=== PATIENT | female | born 1995 | race Caucasian/White ===

== ENCOUNTER 2017-05-26 10:35 | Emergency (ER) | payer MEDICAID ==
[~2017-05-26] VITALS: Ht 160 cm; Wt 45.0 kg
[2017-05-26 12:53] VITALS: BP 109/72
== END 2017-05-26 12:54 | disposition home or self-care (01) ==
LOC: ER 10:36
DX: Z00.8 Encounter for other general examination (principal); F11.10 Opioid abuse, uncomplicated; F17.200 Nicotine dependence, unspecified, uncomplicated
CPT/HCPCS: 99281

== ENCOUNTER 2017-06-19 17:41 | Emergency (ER) | payer MEDICAID | END 2017-06-19 19:23 | disposition left against medical advice (07) | LOC: ER 17:41 | DX: Z53.21 Procedure and treatment not carried out due to patient leaving prior to being seen by health care provider (principal) ==

== ENCOUNTER 2018-01-04 17:42 | Emergency (ER) | payer MEDICAID ==
[~2018-01-04] VITALS: Ht 160 cm; Wt 50.0 kg
[2018-01-04 18:48] VITALS: BP 116/75
== END 2018-01-04 19:48 | disposition home or self-care (01) ==
LOC: ER 17:43
DX: Z02.89 Encounter for other administrative examinations (principal); F11.90 Opioid use, unspecified, uncomplicated
CPT/HCPCS: 99281

== ENCOUNTER 2019-03-08 20:17 | Emergency (ER) | payer MEDICAID ==
[~2019-03-08] VITALS: Ht 160 cm; Wt 50.0 kg
[2019-03-08 20:33] VITALS: BP 106/61
[2019-03-08] MEDS ORDERED: PENI500T2 PO (20:56)
[2019-03-08] MEDS ORDERED: IBUP-1984 PO (20:56)
== END 2019-03-08 21:13 | disposition home or self-care (01) ==
LOC: ER 20:17
DX: K04.7 Periapical abscess without sinus (principal); K02.9 Dental caries, unspecified; F17.200 Nicotine dependence, unspecified, uncomplicated; Z79.899 Other long term (current) drug therapy
CPT/HCPCS: 99283

== ENCOUNTER 2019-07-04 12:12 | Emergency (ER) | payer MEDICAID ==
[~2019-07-04] VITALS: Ht 160 cm; Wt 52.3 kg
[2019-07-04 12:48] VITALS: BP 95/62
[2019-07-04] MEDS ORDERED: ALBU8.5H8 IH (13:08)
[2019-07-04] MEDS ORDERED: DOXY100T56 PO (13:08)
== END 2019-07-04 13:34 | disposition home or self-care (01) ==
LOC: ER 12:12
DX: J20.9 Acute bronchitis, unspecified (principal)
CPT/HCPCS: 99283

== ENCOUNTER 2020-06-29 18:07 | Emergency (ER) | payer MEDICAID ==
[~2020-06-29] VITALS: Ht 160 cm; Wt 52.3 kg
[~2020-06-29 18:07] MED LIST: ALBU8.5H8 IH
[2020-06-29 18:22] VITALS: BP 100/60
[2020-06-29] MEDS ORDERED: ERYT1OIN6 LEFTEYE (19:44)
[2020-06-29] MEDS ORDERED: erythromycin ophthalmic ointment 1gm tube LEFTEYE ONE (19:45)
== END 2020-06-29 20:19 | disposition home or self-care (01) ==
LOC: ER 18:08
DX: H10.89 Other conjunctivitis (principal); Z79.2 Long term (current) use of antibiotics; Z79.899 Other long term (current) drug therapy
CPT/HCPCS: 99283

== ENCOUNTER 2020-11-12 20:39 | Emergency (ER) | payer MEDICAID ==
[~2020-11-12] VITALS: Ht 160 cm; Wt 55.5 kg
[2020-11-12 20:58] VITALS: BP 120/60
[2020-11-12] MEDS ORDERED: penicillin V potassium 500mg tablet PO ONE (22:05)
[2020-11-12] MEDS ORDERED: PENI500T2 PO (22:05)
== END 2020-11-12 22:00 | disposition home or self-care (01) ==
LOC: ER 20:40
DX: O99.612 Diseases of the digestive system complicating pregnancy, second trimester (principal); K04.7 Periapical abscess without sinus; R22.0 Localized swelling, mass and lump, head; Z3A.20 20 weeks gestation of pregnancy; Z79.2 Long term (current) use of antibiotics
CPT/HCPCS: 99283

== ENCOUNTER 2020-11-14 11:49 | Emergency (ER) | payer MEDICAID ==
[~2020-11-14] VITALS: Ht 162.6 cm; Wt 55.5 kg
[~2020-11-14 11:49] MED LIST changes: +PENI500T2 PO
[2020-11-14 12:10] VITALS: BP 110/57
== END 2020-11-14 22:38 | disposition left against medical advice (07) ==
LOC: ER 11:49
DX: K13.79 Other lesions of oral mucosa (principal); Z53.21 Procedure and treatment not carried out due to patient leaving prior to being seen by health care provider

== ENCOUNTER 2020-12-02 18:54 | Emergency (ER) | payer MEDICAID ==
[~2020-12-02] VITALS: Ht 162.6 cm; Wt 55.9 kg
[2020-12-02 20:02] VITALS: BP 104/60
[2020-12-02 20:58] LABS: BASOPHILS % (AUTO) 0.1 % (0-1); EOSINOPHILS % (AUTO) 0.1 % (0-6); HEMATOCRIT 37.7 % (35.0-45.0); HEMOGLOBIN 12.6 g/dl (12.0-16.0); LYMPHOCYTES % (AUTO) 5.3 % (21-51); MEAN CORPUSCULAR HEMOGLOBIN 29.4 PG (27.0-31.0); MEAN CORPUSCULAR HGB CONC 33.4 g/dL (33.0-36.5); MEAN CORPUSCULAR VOLUME 88.1 FL (78-98); MEAN PLATELET VOLUME 6.9 FL (7.4-10.4); MONOCYTES # (AUTO) 1.1 X10'3 (0-0.9); MONOCYTES % (AUTO) 5.5 % (2-12); NEUTROPHILS # (AUTO) 17.2 X10'3 (1.8-7.7); PLATELET COUNT 337 X10'3 (140-440); RED BLOOD COUNT 4.28 X10'6 (4.20-5.60); RED CELL DISTRIBUTION WIDTH 14.1 % (11.5-14.5); WHITE BLOOD COUNT 19.3 X10'3 (4.5-11.0)
[2020-12-02 21:15] LABS: ALANINE AMINOTRANSFERASE 11 U/L (12-78); ALBUMIN 2.6 G/DL (3.4-5.0); ALBUMIN/GLOBULIN RATIO 0.6 (1.1-1.5); ALKALINE PHOSPHATASE 95 IU/L (46-116); ANION GAP 14 (8-16); ASPARTATE AMINO TRANSFERASE 15 U/L (10-37); BILIRUBIN,TOTAL 0.6 MG/DL (0.1-1.0); BLOOD UREA NITROGEN 3 MG/DL (7-18); BUN/CREATININE RATIO 5.6 (6.6-38.0); CALCIUM 8.5 MG/DL (8.5-10.1); CHLORIDE 102 MMOL/L (99-107); CREATININE 0.54 MG/DL (0.40-0.90); GLUCOSE 98 MG/DL (70-104); LIPASE < 50 U/L (73-393); POTASSIUM 3.5 MMOL/L (3.5-5.1); SODIUM 136 MMOL/L (135-145); TOTAL CARBON DIOXIDE 19.6 MMOL/L (24-32); eGFR > 90 ML/MIN
[2020-12-02] MEDS ORDERED: normal saline 1000ML IV soln IVB ONE (22:30)
[2020-12-02 22:45] LABS: MAGNESIUM 1.6 MG/DL (1.5-2.4)
--- NOTE | 2020-12-02 23:57 | NUR ---
pt up to br for ua
[2020-12-03 00:35] LABS: URINE HCG POSITIVE (NEG)
[2020-12-03 00:39] LABS: URINE AMPHETAMINE SCREEN POSITIVE (Neg); URINE BARBITUATE SCREEN NEGATIVE (Neg); URINE BENZODIAZEPINES SCREEN NEGATIVE (Neg); URINE CANNABINOID SCREEN NEGATIVE (Neg); URINE COCAINE SCREEN NEGATIVE (Neg); URINE METHADONE SCREEN NEGATIVE (Neg); URINE OPIATE SCREEN POSITIVE (Neg); URINE PHENCYCLIDINE SCREEN NEGATIVE (Neg)
[2020-12-03 00:47] LABS: UA COLLECTION TYPE CLN CATCH MIDSTREAM
[2020-12-03 00:48] LABS: CLARITY,URINE CLEAR (Clear); COLOR,URINE YELLOW (Yellow)
[2020-12-03 00:50] LABS: GLUCOSE, URINE NEGATIVE (Neg); KETONES,URINE >=80 mg/dl (Neg); NITRITES, URINE NEGATIVE (Neg); OCCULT BLOOD,URINE NEGATIVE (Neg); PROTEIN,URINE TRACE mg/dl (Neg); UROBILINOGEN,URINE 0.2 E.U/dL (0.2-1.0)
[2020-12-03 00:51] LABS: LEUKOCYTE ESTERASE ,URINE TRACE (Neg)
[2020-12-03 00:54] LABS: BACTERIA,URINE NONE SEEN /HPF (Neg); MUCUS STRANDS FEW /LPF (Neg); RBC,URINE 0-2 /HPF (0-2); SQUAMOUS EPITHELIAL CELL,UR FEW /LPF (FEW); WBC,URINE 0-4 /HPF (0-4)
== END 2020-12-03 02:03 | disposition home or self-care (01) ==
LOC: ER 18:56
DX: O26.92 Pregnancy related conditions, unspecified, second trimester (principal); Z20.822 Contact with and (suspected) exposure to COVID-19; R11.2 Nausea with vomiting, unspecified; B34.9 Viral infection, unspecified; R06.02 Shortness of breath; R50.9 Fever, unspecified; F17.200 Nicotine dependence, unspecified, uncomplicated; Z3A.23 23 weeks gestation of pregnancy; Z79.2 Long term (current) use of antibiotics
CPT/HCPCS: 36415; 80053; 80305; 81001; 81025; 83605; 83690; 83735; 84145; 85025; 87040; 87635; 93005; 99284; C9803; J7030